=== PATIENT | female | born 1950 | race Caucasian/White ===

== ENCOUNTER 2016-12-26 11:49 | Outpatient (CLI) | payer MEDICARE ==
--- NOTE | 2016-12-26 13:15 | DIAGNOSTIC IMAGING REPORT ---
PROCEDURE: XR THORACIC SPINE 3 VIEWS INDICATION: SCOLIOSIS/LOW BACK/ BILAT HIP PAIN TECHNIQUE: Three views. COMPARISON: None. FINDINGS: Osteophytes and disc space narrowing are seen throughout the thoracic spine. No evidence of an acute process or fracture. IMPRESSION: 1. Osteoarthritis thoracic spine.
--- NOTE | 2016-12-26 13:17 | DIAGNOSTIC IMAGING REPORT ---
PROCEDURE: XR LUMBAR SPINE 2 OR 3 VIEWS INDICATION: LOW BACK PAIN/SCOLIOSIS TECHNIQUE: Three views. COMPARISON: None. FINDINGS: Lumbar levoscoliosis. There is osteoarthritis involving L1-S1. No evidence of an acute process or fracture. IMPRESSION: 1. Levoscoliosis and osteoarthritis lumbar spine.
== END 2016-12-26 23:00 ==
LOC: XR SRH 11:49
DX: M47.814 Spondylosis without myelopathy or radiculopathy, thoracic region (principal); M47.816 Spondylosis without myelopathy or radiculopathy, lumbar region; M41.86 Other forms of scoliosis, lumbar region